=== PATIENT | female | born 1995 | race Caucasian/White ===

== ENCOUNTER → 2019-04-08 | Outpatient (CLI) | payer BC ==
[~2019-04-08] MED LIST: ACETAMINOPHEN-1 EAC1 OR; AMITRIPTYLINE H25 M2 GT; DARVOCET-N 1001 EACH PO; PENICILLIN VK500 M1 PO; PROMETHAZINE
== END ==
LOC: M.NUC 07:13
DX: R10.9 Unspecified abdominal pain (principal)